=== PATIENT | male | born 1970 | race Hispanic/Latino ===

== ENCOUNTER 2018-06-17 17:34 | Emergency (ER) | payer OTHER ==
[~2018-06-17] VITALS: Ht 175.3 cm; Wt 117.5 kg
[2018-06-17] MEDS ORDERED: HYDROCODONE/APAP 10MG-325MG TAB PO ONE (19:00)
[2018-06-17] MEDS ORDERED: CLONIDINE HCL 0.2 MG TAB PO ONE (19:00)
[2018-06-17 19:16] LABS: BASOPHILS # (AUTO) 0.1 (0.0-0.1); BASOPHILS % 0.5 % (0.0-1.0); EOSINOPHILS # (AUTO) 0.5 (0.0-0.4); EOSINOPHILS % 4.3 % (0.0-6.0); HEMATOCRIT 47.7 % (38.2-49.6); LYMPHOCYTES # (AUTO) 2.4 (1.0-3.2); LYMPHOCYTES % 21.4 % (18.0-39.1); MEAN CORPUSCULAR HEMOGLOBIN 29.5 pg (28-32); MEAN CORPUSCULAR HGB CONC 33.5 g/dL (31-35); MEAN CORPUSCULAR VOLUME 87.8 fL (81-99); MONOCYTES # (AUTO) 0.8 (0.2-0.8); MONOCYTES % 7.1 % (4.4-11.3); NEUTROPHILS # (AUTO) 7.5 (2.1-6.9); NEUTROPHILS % 66.4 % (38.7-80.0); PLATELET COUNT 220 x10e3/uL (140-360); RED BLOOD COUNT 5.43 x10e6/uL (4.3-5.7)
[2018-06-17 19:26] LABS: CLARITY,URINE CLEAR (CLEAR); COLOR,URINE YELLOW (YELLOW)
[2018-06-17 19:27] LABS: BILIRUBIN,URINE NEGATIVE (NEGATIVE); KETONES,URINE NEGATIVE (NEGATIVE); LEUKOCYTE ESTERASE ,URINE NEGATIVE (NEGATIVE); NITRITE,URINE NEGATIVE (NEGATIVE); PROTEIN,URINE DIPSTICK 2+ (NEGATIVE); URINE UROBILINOGEN 0.2 mg/dL (0.2 - 1)
[2018-06-17 19:28] LABS: INR 0.9
[2018-06-17 19:29] LABS: BACTERIA,URINE FEW /HPF; EPITHELIAL CELLS,URINE FEW /LPF; PARTIAL THROMBOPLASTIN TIME 31.8 seconds (23.8-35.5); RBC,URINE 0-5 /HPF (0-5); WBC,URINE (MAN) 0-5 /HPF (0-5)
[2018-06-17 19:37] LABS: ALBUMIN 3.2 g/dL (3.5-5.0); ALBUMIN/GLOBULIN RATIO 0.7 (0.8-2.0); CALCIUM 9.2 mg/dL (8.4-10.2); CREATININE, SERUM 1.56 mg/dL (0.72-1.25); MAGNESIUM 1.9 MG/DL (1.3-2.1)
--- NOTE | 2018-06-17 19:37 | Diagnostic Imaging Report ---
EXAMINATION: CHEST SINGLE (NOT PORTABLE) INDICATION: HTN URGENCY COMPARISON: None FINDINGS: AP view TUBES and LINES: None. LUNGS: Lungs are well inflated. Lungs are clear. There is no evidence of pneumonia or pulmonary edema. PLEURA: No pleural effusion or pneumothorax. HEART AND MEDIASTINUM: The cardiomediastinal silhouette is unremarkable. BONES AND SOFT TISSUES: No acute osseous lesion. Soft tissues are unremarkable. UPPER ABDOMEN: No free air under the diaphragm. IMPRESSION: No acute thoracic abnormality. Signed by: DR. Manuel Perkins MD on 06/17/2018 7:34 PM
--- NOTE | 2018-06-17 19:39 | Diagnostic Imaging Report ---
SP LUMBAR, COMPLETE MIN 4VW HISTORY: Back pain/groin pain COMPARISON: None available. DISCUSSION: Some of the osseous structures are partially obscured by stool and bowel gas. There are five non-rib bearing lumbar vertebral bodies. The alignment of the spine is within normal limits. No evidence of pars defects on oblique views. No displaced fracture or compression deformity is identified. Disc Spaces: The disc spaces are well maintained. Facets: The facet joints are unremarkable. IMPRESSION: No acute radiographic abnormality. Signed by: DR. Manuel Perkins MD on 06/17/2018 7:36 PM
[2018-06-17 19:46] LABS: ANION GAP 14.4 mmol/L (8-16); POTASSIUM 3.4 mmol/L (3.5-5.1)
[2018-06-17 19:48] LABS: CREATINE KINASE MB 1.7 ng/mL (0-5.0)
[2018-06-17] MEDS ORDERED: HYDRALAZINE HCL 20 MG/ML VIAL IV ONE (20:45)
== END 2018-06-17 21:10 | disposition home or self-care (01) ==
LOC: ER 17:34
DX: M54.5 Low back pain (principal); S39.012A Strain of muscle, fascia and tendon of lower back, initial encounter; S33.5XXA Sprain of ligaments of lumbar spine, initial encounter
CPT/HCPCS: 36415; 71045; 72110; 80053; 81001; 82550; 82553; 83735; 83880; 84484; 85025; 85610; 85730; 93005; 99284

== ENCOUNTER 2020-05-07 12:45 | Emergency (ER) | payer BC, OTHER ==
[~2020-05-07] VITALS: Ht 172.7 cm; Wt 115.7 kg
[2020-05-07] MEDS ORDERED: ACETAMINOPHEN 325 MG TAB PO ONE (13:15)
[2020-05-07] MEDS ORDERED: ACETAMINOPHEN 325 MG TAB ONE (13:18)
== END 2020-05-07 14:26 | disposition home or self-care (01) ==
LOC: ER 12:46
DX: R05 Cough (principal); Z20.822 Contact with and (suspected) exposure to COVID-19; I10 Essential (primary) hypertension; E11.9 Type 2 diabetes mellitus without complications; R50.9 Fever, unspecified; R51.9 Headache, unspecified; Z83.1 Family history of other infectious and parasitic diseases
CPT/HCPCS: 71045; 99283

== ENCOUNTER 2023-03-26 18:33 | Emergency (ER) | payer BC ==
[~2023-03-26] VITALS: Ht 172.7 cm; Wt 115.7 kg
[~2023-03-26 18:33] MED LIST: AMLODIPINE BESYL5 MG PO; DIOVAN160 MG PO; FARXIGA5 MG PO; LIPITOR10 MG PO; METFORMIN HCL500 MG PO; OZEMPIC0.25 MG/0. SC; ZESTRIL10 MG PO
[2023-03-26 18:47] VITALS: O2SAT 96
[2023-03-26] MEDS ORDERED: XANAX0.5 MG PO (19:49)
== END 2023-03-26 19:00 | disposition home or self-care (01) ==
LOC: ER 18:37
DX: R06.00 Dyspnea, unspecified (principal); F41.9 Anxiety disorder, unspecified; I10 Essential (primary) hypertension; E11.9 Type 2 diabetes mellitus without complications; E66.9 Obesity, unspecified
CPT/HCPCS: 99282